=== PATIENT | female | born 1940 | race Caucasian/White ===

== ENCOUNTER 2020-03-20 13:47 | Outpatient (CLI) | payer MEDICARE, MEDICAID, SELFPAY ==
--- NOTE | ~2020-03-20 | XR_ITS ---
EXAMINATION: XR chest 2V EXAM DATE: 03/20/2020 14:25 INDICATION: Cough. TECHNIQUE: Frontal and lateral projections of the chest obtained and reviewed. Comparison is made to prior examination from 08/20/2018. FINDINGS: Mild to moderate chronic appearing hyperinflation. Right basilar granuloma. The lungs are o therwise clear. There are no pleural effusions. The cardiomediastinal silhouette is within normal l imits. There is no pneumothorax suspected. There are bony degenerative changes. There is aortic art eriosclerosis. There is no significant interval change. IMPRESSION: No acute cardiopulmonary findings. Reviewed, dictated and finalized at location A.
[2020-03-20 14:33] LABS: Basophils Absolute Auto 0.03 K/mm3 (0.00-0.10); Basophils Percent Auto 0.3 % (0.0-1.0); Eosinophils Absolute Auto 0.29 K/mm3 (0.02-0.50); Eosinophils Percent Auto 2.9 % (1.0-6.0); Hematocrit 44.4 % (35.0-42.0); Hemoglobin 13.9 g/dL (11.7-13.8); Immature Granulocyte Absolute 0.04 K/mm3 (0.00-0.00); Immature Granulocyte Percent A 0.4 % (0.0-0.0); Lymphocytes Absolute Auto 1.67 K/mm3 (1.10-4.50); Lymphocytes Percent Auto 16.7 % (18.0-42.0); Mean Corpuscular HGB Conc 31.3 g/dL (32.0-36.0); Mean Corpuscular Hemoglobin 31.7 pg (27.0-31.0); Mean Corpuscular Volume 101.4 fL (78.0-102.0); Mean Platelet Volume 9.8 fl (9.2-11.8); Monocytes Absolute Auto 0.97 K/mm3 (0.10-0.90); Monocytes Percent Auto 9.7 % (2.0-11.0); Platelet Count Result 232 K/mm3 (150-420); Red Blood Count 4.38 M/mm3 (4.20-5.40); Red Cell Distribution Width 13.4 % (11.6-14.4)
[2020-03-20 14:53] LABS: D Dimer 0.51 mg/L (0.19-0.50)
[2020-03-20 15:10] LABS: Alanine Aminotransferase 32 U/L (14-59); Albumin Level 3.9 g/dL (3.4-5.0); Alkaline Phosphatase 122 U/L (46-116); Anion Gap 10.4 mmol/L (7-16); Aspartate Amino Transferase 21 U/L (15-37); Bilirubin,Total 0.3 mg/dL (0.00-1.00); Blood Urea Nitrogen 30 mg/dL (7-18); Calcium 8.7 mg/dL (8.5-10.1); Carbon Dioxide 31 mmol/L (21-32); Chloride 107 mmol/L (98-108); Estimated Glomerular Filt Rate 34; Glucose 93 mg/dL (70-99); Osmolality Calculated 304 mOsm/kg (285-295); Potassium 4.4 mmol/L (3.5-5.1); Sodium 144 mmol/L (136-145)
== END 2020-03-20 13:48 | disposition home or self-care (01) ==
PROVIDERS: PCP Internal Medicine; Visit Provider Internal Medicine Pulmonary Disease
DX: R05 Cough (principal); R06.89 Other abnormalities of breathing; J44.9 Chronic obstructive pulmonary disease, unspecified
CPT/HCPCS: 36415; 71046; 80053; 85025; 85380

== ENCOUNTER 2020-03-23 14:35 | Emergency (ER) | payer MEDICARE, MEDICAID, SELFPAY ==
--- NOTE | ~2020-03-23 | CT_ITS ---
EXAMINATION: CT brain wo con DATE: 03/23/2020 15:51 INDICATION: Right-sided headache. Fall. TECHNIQUE: Computed tomography (CT) of the head was performed without intravenous contrast. The mA wa s adjusted according to patient size. Iterative reconstruction technique was employed. The dose-lengt h product was 605.33 mGy-cm. COMPARISON: Head CT 11/16/2018 FINDINGS: There are changes of right-sided craniotomy with a aneurysm clip in the suprasellar cistern . There is chronic encephalomalacia involving right frontotemporal region and the right basal ganglia . There are scattered areas of low attenuation in the cerebral white matter. There is no intracranial hemorrhage, acute infarction, or abnormal intracranial mass lesion. There is ex vacuo dilatation of frontal horn right lateral ventricle. The paranasal sinuses are clear. There is a trace left mastoid effusion. There are likely changes of ocular lens replacement surgeries. IMPRESSION: 1. Chronic encephalomalacia involving the right frontotemporal region and right basal ganglia. 2. Stable moderate nonspecific cerebral white matter disease, which likely represents chronic small v essel ischemic disease. Reviewed, dictated and finalized at location A. IMPRESSION: 1. Chronic encephalomalacia involving the right frontotemporal region and right basal ganglia. 2. Stable moderate nonspecific cerebral white matter disease, which likely repr esents chronic small vessel ischemic disease.
--- NOTE | ~2020-03-23 | CT_ITS ---
EXAMINATION: CT cervical spine wo con DATE: 03/23/2020 15:51 INDICATION: Neck pain. TECHNIQUE: Computed tomography (CT) of the cervical spine was performed without intravenous contrast. Automated exposure control and iterative reconstruction technique were employed. The dose-length pro duct was 436.63 mGy-cm. COMPARISON: None FINDINGS: The visualized portions of the lung apices demonstrate emphysema. There is a multinodular g oiter with the largest nodule measuring 3.1 cm. There is 2 mm anterolisthesis of C3 on C4 and 2 mm re trolisthesis of C6 on C7. Vertebral body heights are normal. There is mildly decreased disc height at C3-C4 and C4-C5, moderately decreased disc height at C5-C6, and severely decreased disc height at C6 -C7. The following disc levels are specifically discussed: C2-C3: There is moderate left uncovertebral joint osteoarthritis. There is moderate right and severe left facet joint osteoarthritis. There is mild left neural foraminal stenosis. There is no central ca nal stenosis. C3-C4: There is mild right uncovertebral joint osteoarthritis. There is severe bilateral facet joint osteoarthritis. There is mild bilateral neural foraminal stenosis. There is mild central canal stenos is. C4-C5: There is no uncovertebral joint osteoarthritis. There is severe bilateral facet joint osteoart hritis. There is moderate right and mild left neural foraminal stenosis. There is mild central canal stenosis. C5-C6: There is severe bilateral uncovertebral joint osteoarthritis. There is moderate right and kris re left facet joint osteoarthritis. There is mild right and moderate left neural foraminal stenosis. There is mild central canal stenosis. C6-C7: There is severe bilateral uncovertebral joint osteoarthritis. There is severe bilateral facet joint osteoarthritis. There is moderate bilateral neural foraminal stenosis. There is mild central ca nal stenosis. C7-T1: There is no uncovertebral joint osteoarthritis. There is severe right and moderate left facet joint osteoarthritis. There is mild right neural foraminal stenosis. There is no central canal stenos is. IMPRESSION: 1. No fracture. 2. Severe cervical spondylosis. Reviewed, dictated and finalized at location A.
[2020-03-23 15:00] VITALS: BP 150/81; PULSE 69; RESP 16; TEMP 36.9; O2SAT 97
--- NOTE | 2020-03-23 15:10 | ED.HEATRA ---
HPI - Head Injury General Chief complaint: Head Injury Stated complaint: fell and hit head Source: patient Mode of arrival: ambulatory Limitations: no limitations History of Present Illness HPI Narrative: 80-year-old female who lives in assisted living rolled off of her bed at 2:00 p.m., 70 minutes ago, hitting the right forehead. She woke up when she hit the floor. She rates the pain as 4/10. She had no apparent loss of consciousness she remembers the occurrence. She has a history of cerebral aneurysm and CVA. Her daughter, in the room with her, states that her short-term memory has been poor since her aneurysm. She has minor soreness in her neck. She denies pain elsewhere including upper and lower extremities, hip and chest wall. Related Data Home Medications Medication Instructions Recorded Confirmed atorvastatin 20 mg PO DAILY 03/23/20 03/23/20 carvedilol 25 mg PO DAILY 03/23/20 03/23/20 donepezil 10 mg PO DAILY 03/23/20 03/23/20 escitalopram oxalate 20 mg PO DAILY 03/23/20 03/23/20 famotidine 20 mg PO DAILY 03/23/20 03/23/20 hydrocodone-acetaminophen 1 tablet PO Q4-5H PRN 03/23/20 03/23/20 losartan 100 mg PO DAILY 03/23/20 03/23/20 montelukast 10 mg PO DAILY 03/23/20 03/23/20 phenytoin sodium extended 100 mg PO DAILY 03/23/20 03/23/20 prazosin 1 mg PO DAILY 03/23/20 03/23/20 sitagliptin-metformin [Janumet] 1 tablet PO BID 03/23/20 03/23/20 umeclidinium-vilanterol [Anoro 1 inh INHALATION BID 03/23/20 03/23/20 Ellipta] Allergies Allergy/AdvReac Type Severity Reaction Status Date / Time ibuprofen Allergy Mild STOMACH Unverified 12/06/08 14:45 UPSET tetanus toxoid, adsorbed Allergy Mild Difficulty Unverified 03/23/20 16:14 Breathing Review of Systems Constitutional: Constitutional: Denies chills and Denies fever(s) ENT: Denies nasal congestion and Denies sore throat Cardiovascular: Cardiovascular: Denies chest pain Respiratory: Respiratory: Denies cough and Denies dyspnea Gastrointestinal: Gastrointestinal: Denies abdominal pain Genitourinary: Genitourinary: Denies dysuria Musculoskeletal: Musculoskeletal: Reports no additional musculoskeletal complaints Neurologic: Denies vertigo [facility] Past Medical History Medical History (Updated 03/23/20 @ 16:23 by Nitin Calix MD) Cerebral aneurysm COPD (chronic obstructive pulmonary disease) CVA (cerebral vascular accident) Diabetes mellitus type 2 in obese Social History Social History (Updated 03/23/20 @ 16:24 by Nitin Calix MD) Additional living arrangements comments: Assisted living Exam Const: General: no acute distress HENMT: Other: 3 cm abrasion overlying a 4 cm hematoma right frontal scalp. This is tender. Eyes: Pupils: Equal, round and reactive pupils present EOM: EOMs intact bilaterally Neck: Neck: normal visual inspection, no lymphadenopathy and other ( Minor tenderness of the mid cervical paraspinal muscles. ROM not limited) Other: Supple, nontender. Chest: Other: No chest wall tenderness Resp: Auscultation: clear to auscultation bilaterally Cardio: Rate: regular rate Rhythm: regular rhythm Heart sounds: no murmurs GI: GI Palp: No abdominal tenderness Back/Spine/Pelvis: Other: no thoracic or lumbar spine tenderness. Extrem: Other: No swelling or tenderness of her upper lower extremities. Full have internal external rotation and flexion, knee extension flexion. No tenderness of lower extremities or pelvis. Course Vital Signs Vital signs: Vital Signs Temperature 36.9 C 03/23/20 15:00 Pulse Rate 69 03/23/20 15:00 Respiratory Rate 16 03/23/20 15:00 Blood Pressure 150/81 H 03/23/20 15:00 Pulse Oximetry 97 03/23/20 15:00 Temperature 36.9 C 03/23/20 15:00 Pulse Rate 69 03/23/20 15:00 Respiratory Rate 16 03/23/20 15:00 Blood Pressure 150/81 H 03/23/20 15:00 Pulse Oximetry 97 03/23/20 15:00 MDM - Head Injury MDM Narrative Medical decision making
[2020-03-23 16:26] VITALS: BP 169/72; PULSE 65; O2SAT 99
== END 2020-03-23 16:28 | disposition home or self-care (01) ==
PROVIDERS: Emergency Provider Family Medicine; PCP Internal Medicine
DX: S00.93XA Contusion of unspecified part of head, initial encounter (principal); S16.1XXA Strain of muscle, fascia and tendon at neck level, initial encounter; J44.9 Chronic obstructive pulmonary disease, unspecified; Z86.73 Personal history of transient ischemic attack (TIA), and cerebral infarction without residual deficits; E11.9 Type 2 diabetes mellitus without complications; W06.XXXA Fall from bed, initial encounter
CPT/HCPCS: 70450; 72125; 99282; 99284